=== PATIENT | female | born 1940 | race Caucasian/White ===

== ENCOUNTER → 2018-03-17 | Outpatient (CLI) | payer MEDICARE, BC ==
[~2018-03-17] MED LIST: ACETAMINOPHEN-1 EAC1 PO; ATORVASTATIN CA40 MG PO; CENTRUM SILVER1 EAC4 PO; CEPHALEXIN 500500 M2 PO; COLACE100 MG PO; COUMADIN 5 MG TA5 M1; COUMADIN7.5 MG PO; DILTIAZEM 24HR120 M2 PO; DIOVAN HCT 3201 EACH; DIOVAN320 MG; DURAGESIC1 EAC2 TRANSDERM; FISH OIL 1,0001 EAC5 PO; FISH OIL 1,001000 M2 PO; FLUCONAZOL200 MG/105 IVPB; IRON325 PO; KEFLEX500 MG PO; LIPITOR; OXYCODON-ACETA1 EACH; PERCOCET PO; PROTONIX40 M1 PO; REQUIP 1 MG TABL1 M1 PO; SINGULAIR 10 MG10 M1 PO; TRIAMTERENE-HC1 EAC1; UNASYN 3 GM VIAL3 G1 IV; [UNRECOGNIZED DRUG - OTHER]
--- NOTE | 2018-03-17 14:28 | 2DMMODE ---
[place] [id number] 2 D/M-MODE ECHOCARDIOGRAM Name: KATRINA BELL Room: [facility]#: [id number] Admission: 03/17/18 Attend Phys: Mark Barker, Discharge: Date of : 40 Date of Service: 03/17/18 1428 Report #: [id number] THIS REPORT FOR: //name// APPROVED REPORT Study performed: 03/17/2018 10:09:49 EXAM: Comprehensive 2D, Doppler, and color-flow Echocardiogram Patient Location: Out-Patient Status: routine BSA: 2.13 HR: 76 bpm BP: 142/80 mmHg Other Information Study Quality: Good Indications Aortic Valve Disease 2D Dimensions IVSd: 12.45 (7-11mm) LVOT Diam: 20.41 (18-24mm) LVDd: 39.89 mm PWd: 12.85 (7-11mm) Ascending Ao: 30.82 (22-36mm) LVDs: 21.04 (25-40mm) Aortic Root: 28.94 mm Volumes Left Atrial Volume (Systole) LA ESV Index: 28.20 mL/m2 Aortic Valve AoV Peak Fabrice.: 1.81 m/s AO Peak Gr.: 13.13 mmHg LVOT Max P.61 mmHg AO Mean Gr.: 7.71 mmHg LVOT Mean P.29 mmHg LVOT Max V: 0.81 m/s AO V2 VTI: 38.09 cm LVOT Mean V: 0.52 m/s YOHAN (VTI): 1.81 cm2 LVOT V1 VTI: 21.12 cm Mitral Valve MV Decel. Time: 174.04 ms MV E Max Fabrice.: 1.14 m/s MV PHT: 50.47 ms MVA (PHT): 4.36 [place] [id number] 2 D/M-MODE ECHOCARDIOGRAM Name: KATRINA BELL Room: [facility]#: [id number] Admission: 03/17/18 Attend Phys: Mark Barker, Discharge: Date of : 40 Date of Service: 03/17/18 1428 Report #: [id number] TDI E/Lateral E': 8.14 E/Medial E': 8.14 Medial E' Fabrice.: 0.14 m/s Lateral E' Fabrice.: 0.14 m/s Pulmonary Valve PV Peak Fabrice.: 1.04 m/s PV Peak Gr.: 4.32 mmHg Tricuspid Valve RAP Estimate: 5.00 mmHg TR Peak Gr.: 32.25 mmHg RVSP: 37.25 mmHg PA Pressure: 37.25 mmHg Left Ventricle The left ventricle is normal size. There is normal LV segmental wall motion. Mild concentric left ventricular hypertrophy. Left ventricular systolic function is normal. The left ventricular ejection fraction is within the normal range. LVEF is 55-60%. The left ventricular diastolic function is normal. Right Ventricle The right ventricle is normal size. The right ventricular systolic function is normal. Atria Left atrium is mildly dilated. The right atrium size is normal. Aortic Valve Aortic valve is mildly calcified. Mild aortic regurgitation. Mild aortic stenosis. Mitral Valve Mitral valve leaflets are mildly thickened. Mild mitral regurgitation. No evidence of mitral valve stenosis. Tricuspid Valve The tricuspid valve is normal in structure. Mild tricuspid regurgitation. estimated pa pressure 40 mm Hg Pulmonic Valve Pulmonic valve is not well visualized. There is no pulmonic valvular regurgitation[place] [id number] 2 D/M-MODE ECHOCARDIOGRAM Name: KATRINA BELL Room: [facility]#: [id number] Admission: 03/17/18 Attend Phys: Mark Barker, Discharge: Date of : 40 Date of Service: 03/17/18 1428 Report #: [id number] The aortic root is normal in size. IVC is normal in size and collapses >50% with inspiration. Pericardium There is no pericardial effusion. <Conclusion> Mild concentric left ventricular hypertrophy. LVEF is 55-60%. Left atrium is mildly dilated. Mild aortic regurgitation. Mild aortic stenosis. Mild mitral regurgitation. Mild tricuspid regurgitation. estimated pa pressure 40 mm Hg <ELECTRONICALLY SIGNED> By: Wellington Salas MD, FACC 03/17/18 1428 1428 142 Wellington Salas MD, FACC /INF
== END ==
LOC: M.CRD 10:00
DX: I08.3 Combined rheumatic disorders of mitral, aortic and tricuspid valves (principal); I50.32 Chronic diastolic (congestive) heart failure

== ENCOUNTER → 2018-03-19 | Outpatient (CLI) | payer MEDICARE, BC | LOC: M.RAD 14:27 | DX: R06.09 Other forms of dyspnea (principal) ==

== ENCOUNTER 2018-07-06 18:02 | Emergency (ER) | payer MEDICARE, BC ==
[~2018-07-06] VITALS: Ht 165.1 cm; Wt 108.9 kg
[2018-07-06] MEDS ORDERED: COUMADIN 1MG TAB1 M1 PO (18:14)
[2018-07-06 20:54] VITALS: BP 144/56
== END 2018-07-06 20:56 | disposition home or self-care (01) ==
LOC: M.ERS 18:02
DX: S22.42XA Multiple fractures of ribs, left side, initial encounter for closed fracture (principal); I48.91 Unspecified atrial fibrillation; I10 Essential (primary) hypertension; E78.5 Hyperlipidemia, unspecified; Z90.710 Acquired absence of both cervix and uterus; Z88.8 Allergy status to other drugs, medicaments and biological substances; Z96.653 Presence of artificial knee joint, bilateral; Z96.643 Presence of artificial hip joint, bilateral; W18.39XA Other fall on same level, initial encounter; Y93.89 Activity, other specified; Y92.89 Other specified places as the place of occurrence of the external cause; Y99.8 Other external cause status

== ENCOUNTER → 2018-08-18 | Outpatient (CLI) | payer MEDICARE, BC ==
[~2018-08-18] MED LIST changes: +COUMADIN 1MG TAB1 M1 PO
[2018-08-18 12:56] LABS: HEMATOCRIT 37.8 % (37.0-47.0); HEMOGLOBIN 12.7 gm/dL (12.0-15.0); MCHC 33.6 g/dL (28.0-37.0); MCV 92.2 fL (80.0-100.0); RBC 4.09 mil/uL (4.20-5.00); RDW-CV 15.5 % (10.5-14.5); WBC 6.5 thou/uL (4.0-11.0)
[2018-08-18 13:16] LABS: ALKALINE PHOSPHATASE 199 U/L (46-116); ANION GAP 8 mmol/L (7-16); BUN 36 mg/dL (7-18); CALCIUM 9.7 mg/dL (8.5-10.1); CHLORIDE 102 mmol/L (98-107); CO2 30 mmol/L (21-32); CREATININE 1.4 mg/dL (0.6-1.3); GLUCOSE 101 mg/dL (70-99); NT-PRO BRAIN NAT PEPTIDE 1095 pg/mL (<300); POTASSIUM 4.2 mmol/L (3.5-5.1); SGOT 41 U/L (15-37); SGPT 32 U/L (30-65); SODIUM 140 mmol/L (136-145); TOTAL BILIRUBIN 0.6 mg/dL (<0.1-1.0); TOTAL PROTEIN 7.9 g/dL (6.4-8.2)
[2018-08-18 13:17] LABS: SERUM ASSESSMENT Clear
[2018-08-18 13:32] LABS: CHOLESTEROL 142 mg/dL (<200); HDL CHOLESTEROL 75 mg/dL (>40); LDL CHOLESTEROL 50 mg/dL (<100); TC:HDL 1.9 Ratio (Not establshd); TRIGLYCERIDE 87 mg/dL (<150); VLDL 17 mg/dL (<40)
== END ==
LOC: M.LAB 12:16
PROVIDERS: Registered Nurse
DX: E78.5 Hyperlipidemia, unspecified (principal); R60.0 Localized edema

== ENCOUNTER → 2018-09-13 | Outpatient (CLI) | payer MEDICARE, BC | LOC: M.ULTRA 12:50 | DX: G45.9 Transient cerebral ischemic attack, unspecified (principal); Z91.09 Other allergy status, other than to drugs and biological substances ==

== ENCOUNTER → 2018-12-17 | Outpatient (CLI) | payer MEDICARE, BC | LOC: M.RAD 14:36 | DX: J47.9 Bronchiectasis, uncomplicated (principal); R91.1 Solitary pulmonary nodule; M47.814 Spondylosis without myelopathy or radiculopathy, thoracic region; I48.91 Unspecified atrial fibrillation; I10 Essential (primary) hypertension ==

== ENCOUNTER → 2020-03-27 | Outpatient (CLI) | payer MEDICARE, BC | LOC: M.RAD 14:42 | PROVIDERS: ATTEND Registered Nurse | DX: I51.7 Cardiomegaly (principal); R06.00 Dyspnea, unspecified; R06.02 Shortness of breath ==

== ENCOUNTER → 2020-04-11 | Outpatient (CLI) | payer MEDICARE, BC ==
--- NOTE | 2020-04-11 15:54 | 2DMMODE ---
[place] [address] 2 D/M-MODE ECHOCARDIOGRAM Name: KATRINA BELL Room: [facility]#: [id number] Admission: 04/11/20 Attend Phys: Sayda Venegas RN Discharge: Date of : 40 Date of Service: 04/11/20 1554 Report #: [id number] THIS REPORT FOR: cc: Sayda Venegas Laura RNP Blick, David R. MD [facility] ~ APPROVED REPORT Study performed: 04/11/2020 14:12:39 EXAM: Comprehensive 2D, Doppler, and color-flow Echocardiogram Patient Location: Out-Patient BSA: 2.02 HR: 65 bpm BP: 145/70 mmHg Other Information Study Quality: Good Indications Aortic Valve Disease Atrial Fibrillation 2D Dimensions IVSd: 8.76 (7-11mm) LVOT Diam: 20.47 (18-24mm) LVDd: 46.24 mm PWd: 9.86 (7-11mm) Ascending Ao: 27.93 (22-36mm) LVDs: 28.48 (25-40mm) Aortic Root: 26.36 mm Volumes Left Atrial Volume (Systole) LA ESV Index: 35.30 mL/m2 Aortic Valve AoV Peak Fabrice.: 3.20 m/s AO Peak Gr.: 40.86 mmHg LVOT Max P.41 mmHg AO Mean Gr.: 24.47 mmHg LVOT Mean P.25 mmHg LVOT Max V: 0.78 m/s AO V2 VTI: 78.76 cm LVOT Mean V: 0.52 m/s YOHAN (VTI): 0.81 cm2 LVOT V1 VTI: 19.47 [place] [address] 2 D/M-MODE ECHOCARDIOGRAM Name: KATRINA BELL Room: [facility]#: [id number] Admission: 04/11/20 Attend Phys: Sayda Venegas RN Discharge: Date of : 40 Date of Service: 04/11/20 1554 Report #: [id number] E/A Ratio: 2.40 MV Decel. Time: 169.90 ms MV E Max Fabrice.: 1.41 m/s MV PHT: 49.27 ms MVA (PHT): 4.47 cm2 TDI E/Lateral E': 12.82 E/Medial E': 12.82 Medial E' Fabrice.: 0.11 m/s Lateral E' Fabrice.: 0.11 m/s Pulmonary Valve PV Peak Fabrice.: 0.96 m/s PV Peak Gr.: 3.67 mmHg Tricuspid Valve RAP Estimate: 5.00 mmHg TR Peak Gr.: 33.37 mmHg RVSP: 38.37 mmHg PA Pressure: 38.37 mmHg Left Ventricle The left ventricle is normal size. There is normal LV segmental wall motion. There is normal left ventricular wall thickness. Left ventricular systolic function is normal. The left ventricular ejection fraction is within the normal range. LVEF is 55-60%. This study is not technically sufficient to allow evaluation of the LV diastolic function due to atrial fibrillation. Right Ventricle The right ventricle is normal size. The right ventricular systolic function is normal. Atria Left atrium is mildly dilated. The right atrium size is normal. Aortic Valve Aortic valve is calcified. Mild aortic regurgitation. Moderate aortic stenosis. Mitral Valve Mild mitral annular calcification. The mitral valve is mildly thickened. Mild mitral regurgitation. No evidence of mitral valve stenosis. Tricuspid Valve The tricuspid valve is normal in structure[place] [address] 2 D/M-MODE ECHOCARDIOGRAM Name: KATRINA BELL Room: [facility]#: [id number] Admission: 04/11/20 Attend Phys: Sayda Venegas RN Discharge: Date of : 40 Date of Service: 04/11/20 1554 Report #: [id number] tricuspid regurgitation. estimated pa pressure 55 mmHg Pulmonic Valve The pulmonary valve is normal in structure. There is no pulmonic valvular regurgitation. Great Vessels The aortic root is normal in size. IVC is normal in size and collapses >50% with inspiration. Pericardium There is no pericardial effusion. <Conclusion> LVEF is 55-60%. Left atrium is mildly dilated. Moderate aortic stenosis. Mild aortic regurgitation. Mild mitral regurgitation. Mild to moderate tricuspid regurgitation. estimated pa pressure 55 mmHg <ELECTRONICALLY SIGNED> By: Wellington Salas MD, [facility] 04/11/20 1554 1554 1554 Wellington Salas MD, FACC /INF
== END ==
LOC: M.CRD 11:00
PROVIDERS: ATTEND Registered Nurse
DX: I08.8 Other rheumatic multiple valve diseases (principal)

== ENCOUNTER 2021-04-14 14:25 | Emergency (ER) | payer MEDICARE, BC ==
[~2021-04-14] VITALS: Ht 165.1 cm; Wt 96.6 kg
[2021-04-14 14:57] LABS: ABSOLUTE EOSINOPHILS 0.1 thou/uL (0.0-0.7); ABSOLUTE LYMPHOCYTES 1.2 thou/uL (0.8-5.3); ABSOLUTE MONOCYTES 0.5 thou/uL (0.0-1.2); ABSOLUTE NEUTROPHILS 3.5 thou/uL (1.6-8.1); BASOPHILS 0.9 %; EOSINOPHILS 2.7 %; HEMATOCRIT 34.6 % (37.0-47.0); HEMOGLOBIN 11.4 gm/dL (12.0-15.0); MCH 30.1 pg (26.0-34.0); MCV 91.3 fL (80.0-100.0); MONOCYTES 8.7 %; MPV 7.5 fl. (7.2-11.1); NUCLEATED RBCS 0 /100WBC; PLATELET COUNT* 165 thou/uL (150-400); POLYS 64.7 %; RBC 3.79 mil/uL (4.20-5.00); RDW-CV 16.2 % (10.5-14.5); WBC 5.4 thou/uL (4.0-11.0)
[2021-04-14 15:05] LABS: CALCIUM 9.3 mg/dL (8.5-10.1); CREATININE 1.5 mg/dL (0.6-1.3); POTASSIUM 4.5 mmol/L (3.5-5.1)
[2021-04-14 15:09] LABS: APTT 39.6 Seconds (25.0-31.3); INR 3.4; PROTIME 33.4 Seconds (9.20-11.50)
[2021-04-14 15:13] LABS: ALBUMIN 3.4 g/dL (3.4-5.0); TOTAL BILIRUBIN 0.4 mg/dL (<0.1-1.0); TOTAL PROTEIN 7.6 g/dL (6.4-8.2)
[2021-04-14 15:40] VITALS: BP 183/93
== END 2021-04-14 15:44 | disposition home or self-care (01) ==
LOC: M.ERS 14:25
PROVIDERS: Family Medicine
DX: R04.0 Epistaxis (principal); I10 Essential (primary) hypertension; M19.90 Unspecified osteoarthritis, unspecified site; E78.5 Hyperlipidemia, unspecified; Z90.710 Acquired absence of both cervix and uterus; Z90.49 Acquired absence of other specified parts of digestive tract; Z79.899 Other long term (current) drug therapy